=== PATIENT | female | born 1985 | race Caucasian/White ===

== ENCOUNTER 2017-05-24 20:25 | Outpatient (CLI) | payer MEDICAID ==
[2017-05-24 21:24] LABS: ADD MAN DIFF? NO
[2017-05-24 21:30] LABS: BASOPHILS % 0.2 % (0.0-2.0); EOSINOPHILS # 0.1 10^3/ul (0.0-0.5); EOSINOPHILS % 0.8 % (0.0-7.0); HEMATOCRIT 28.8 % (37.0-47.0); HEMOGLOBIN 9.9 g/dl (12.0-16.0); LYMPHOCYTES # 2.1 10^3/ul (0.8-2.9); LYMPHOCYTES % 21.9 % (15.0-51.0); MEAN CORPUSCULAR HEMOGLOBIN 29.5 pg (29.0-33.0); MEAN CORPUSCULAR HGB CONC 34.4 g/dl (32.0-37.0); MEAN CORPUSCULAR VOLUME 85.7 fl (82.0-101.0); MEAN PLATELET VOLUME 9.5 fl (7.4-10.4); MONOCYTE # 0.7 10^3/ul (0.3-0.9); NEUTROPHIL # 6.8 10^3/ul (1.6-7.5); NEUTROPHILS % 69.4 % (39.0-77.0); PLATELET COUNT 213 10^3/UL (140-415); RED BLOOD COUNT 3.36 10^6/ul (4.20-5.40); RED CELL DISTRIBUTION WIDTH 13.2 % (11.5-14.5)
[2017-05-24 21:30] LABS: WHITE BLOOD COUNT 9.7 10^3/ul (4.8-10.8)
[2017-05-24 21:31] LABS: ADD UMIC NO; UR ASCORBIC ACID NEGATIVE (NEGATIVE); UR BILIRUBIN (Dip) NEGATIVE (NEGATIVE); UR BLOOD (Dip) NEGATIVE (NEGATIVE); UR CLARITY CLEAR (CLEAR); UR COLOR STRAW (YELLOW); UR GLUCOSE (Dip) NEGATIVE (NEGATIVE); UR KETONES (Dip) NEGATIVE (NEGATIVE); UR LEUKOCYTE ESTERASE (Dip) NEGATIVE Leu/ul (NEGATIVE); UR NITRITE (Dip) NEGATIVE (NEGATIVE); UR SPECIFIC GRAVITY (Dip) 1.005 (1.003-1.030); UR TOTAL PROTEIN (Dip) NEGATIVE (NEGATIVE); UR UROBILINOGEN (Dip) NEGATIVE (NEGATIVE)
[2017-05-24 21:50] LABS: RUPTURE FETAL MEMBRANES NEGATIVE (NEGATIVE)
== END 2017-05-24 22:23 | disposition home or self-care (01) ==
LOC: OBT 20:25 → L-D 20:29 → OBT 22:23
DX: O41.93X0 Disorder of amniotic fluid and membranes, unspecified, third trimester, not applicable or unspecified (principal); Z3A.30 30 weeks gestation of pregnancy
CPT/HCPCS: 76815; 76817; 81003; 84112; 85025

== ENCOUNTER 2017-06-17 12:20 | Outpatient (CLI) | payer MEDICAID | END 2017-06-17 14:30 | disposition home or self-care (01) | LOC: OBT 12:20 → L-D 12:22 → OBT 14:30 | DX: O26.893 Other specified pregnancy related conditions, third trimester (principal); Z3A.34 34 weeks gestation of pregnancy; R07.9 Chest pain, unspecified | CPT/HCPCS: 76817; 76818 ==

== ENCOUNTER 2017-06-17 14:34 | Emergency (ER) | payer MEDICAID ==
[2017-06-17] MEDS: FAMOTIDINE 20 MG TAB PO (18:07)
== END 2017-06-17 18:53 | disposition home or self-care (01) ==
LOC: FTE 14:34
DX: O99.89 Other specified diseases and conditions complicating pregnancy, childbirth and the puerperium (principal); H60.90 Unspecified otitis externa, unspecified ear; O99.513 Diseases of the respiratory system complicating pregnancy, third trimester; J06.9 Acute upper respiratory infection, unspecified; R07.9 Chest pain, unspecified; Z3A.34 34 weeks gestation of pregnancy
CPT/HCPCS: 93005; 99284-25

== ENCOUNTER 2017-07-07 18:50 | Inpatient (IN) | payer MEDICAID ==
[2017-07-07 19:54] LABS: ADD UMIC YES; UR ASCORBIC ACID NEGATIVE (NEGATIVE); UR BACTERIA FEW /HPF (NONE SEEN); UR BILIRUBIN (Dip) NEGATIVE (NEGATIVE); UR BLOOD (Dip) 1+ mg/dL (NEGATIVE); UR CLARITY CLEAR (CLEAR); UR COLOR YELLOW (YELLOW); UR GLUCOSE (Dip) NEGATIVE (NEGATIVE); UR KETONES (Dip) 1+ mg/dL (NEGATIVE); UR LEUKOCYTE ESTERASE (Dip) NEGATIVE Leu/ul (NEGATIVE); UR MUCUS FEW /HPF (NONE SEEN); UR NITRITE (Dip) NEGATIVE (NEGATIVE); UR RBC 1 /HPF (0-5); UR SPECIFIC GRAVITY (Dip) 1.012 (1.003-1.030); UR TOTAL PROTEIN (Dip) 2+ mg/dl (NEGATIVE); UR UROBILINOGEN (Dip) NEGATIVE (NEGATIVE); UR WBC 2 /HPF (0-5)
[2017-07-07 20:21] LABS: RUPTURE FETAL MEMBRANES NEGATIVE (NEGATIVE)
[2017-07-07] MEDS ORDERED: MISOPROSTOL 200 MCG TAB PR ×2 (22:30→23:00)
[2017-07-07] MEDS ORDERED: METHYLERGONOVINE 0.2 MG INJ IM ×2 (22:30→23:00)
[2017-07-07] MEDS ORDERED: LIDOCAINE 1% (MPF) 30 ML INJ INJ (22:30)
[2017-07-07] MEDS ORDERED: CARBOPROST 250 MCG INJ IM ×2 (22:30→23:00)
[2017-07-07] MEDS ORDERED: OXYTOCIN 30 UNITS/LR 500 ML IV ×3 (22:30→23:00)
[2017-07-07] MEDS ORDERED: MAGNESIUM SULFATE 4 GM/100 ML 100 ML (22:35)
[2017-07-07] MEDS: LACTATED RINGER'S 1,000 ML IV (22:43)
[2017-07-07] MEDS: MAGNESIUM SULFATE 4 GM/100 ML 100 ML IV (22:44)
[2017-07-07 22:47] LABS: ADD MAN DIFF? NO
[2017-07-07 22:55] LABS: WHITE BLOOD COUNT 8.2 10^3/ul (4.8-10.8)
[2017-07-07 22:55] LABS: BASOPHILS % 0.4 % (0.0-2.0); EOSINOPHILS # 0.1 10^3/ul (0.0-0.5); EOSINOPHILS % 0.6 % (0.0-7.0); HEMATOCRIT 31.4 % (37.0-47.0); HEMOGLOBIN 10.8 g/dl (12.0-16.0); MEAN CORPUSCULAR HEMOGLOBIN 29.4 pg (29.0-33.0); MEAN CORPUSCULAR HGB CONC 34.4 g/dl (32.0-37.0); MEAN CORPUSCULAR VOLUME 85.6 fl (82.0-101.0); MEAN PLATELET VOLUME 10.4 fl (7.4-10.4); MONOCYTE # 0.5 10^3/ul (0.3-0.9); MONOCYTES % 6.4 % (0.0-11.0); NEUTROPHIL # 5.5 10^3/ul (1.6-7.5); NEUTROPHILS % 67.9 % (39.0-77.0); PLATELET COUNT 192 10^3/UL (140-415); RED BLOOD COUNT 3.67 10^6/ul (4.20-5.40); RED CELL DISTRIBUTION WIDTH 14.9 % (11.5-14.5)
[2017-07-07] MEDS: BETAMET NA PHOS/AC(6 MG/ML) 5ML INJ IM (22:55)
[2017-07-07 23:11] LABS: INR 0.94; PARTIAL THROMBOPLASTIN TIME 24.4 Sec (25.0-35.0); PROTIME 12.7 Sec (11.9-14.9)
[2017-07-07] MEDS: MAGNESIUM SULFATE 20 GM/500 ML 500 ML IV (23:11)
[2017-07-08 00:13] LABS: HEPATITIS B SURFACE ANTIGEN NEGATIVE (NEGATIVE)
[2017-07-08] MEDS: ACETAMINOPHEN 325 MG TAB PO ×2 (03:04→15:13)
[2017-07-08] MEDS: MAGNESIUM SULFATE 20 GM/500 ML 500 ML IV ×2 (08:11→18:20)
[2017-07-08] MEDS: LACTATED RINGER'S 1,000 ML IV ×3 (08:11→22:15)
[2017-07-08 14:19] LABS: MAGNESIUM 5.2 mg/dl (1.7-2.5)
[2017-07-08 20:07] LABS: MAGNESIUM 5.3 mg/dl (1.7-2.5)
[2017-07-08 22:40] LABS: RAPID PLASMA REAGIN NONREACTIVE (NR)
[2017-07-08] MEDS: BETAMET NA PHOS/AC(6 MG/ML) 5ML INJ IM (23:07)
[2017-07-09 01:20] LABS: MAGNESIUM 5.5 mg/dl (1.7-2.5)
[2017-07-09] MEDS: MAGNESIUM SULFATE 20 GM/500 ML 500 ML IV ×2 (04:01→16:14)
[2017-07-09] MEDS: LACTATED RINGER'S 1,000 ML IV ×3 (06:15→22:09)
[2017-07-09 07:30] LABS: MAGNESIUM 5.4 mg/dl (1.7-2.5)
[2017-07-09 12:32] LABS: MAGNESIUM 5.6 mg/dl (1.7-2.5)
[2017-07-10 02:00] LABS: MAGNESIUM 5.3 mg/dl (1.7-2.5)
[2017-07-10] MEDS: MAGNESIUM SULFATE 20 GM/500 ML 500 ML IV ×3 (02:47→20:25)
[2017-07-10] MEDS: ACETAMINOPHEN 325 MG TAB PO (02:52)
[2017-07-10 08:44] LABS: MAGNESIUM 5.4 mg/dl (1.7-2.5)
[2017-07-10 18:53] LABS: MAGNESIUM 2.7 mg/dl (1.7-2.5)
[2017-07-10] MEDS: LACTATED RINGER'S 1,000 ML IV ×2 (19:30)
[2017-07-11] MEDS: LACTATED RINGER'S 1,000 ML IV ×6 (02:30→23:04)
[2017-07-11] MEDS ORDERED: OXYTOCIN 30 UNITS/LR 500 ML BAG IV (07:00)
[2017-07-11] MEDS ORDERED: METHYLERGONOVINE 0.2 MG INJ IM ×2 (10:30→23:30)
[2017-07-11] MEDS ORDERED: CEFAZOLIN 2 GM/50 ML (PMX) 50 ML IV (10:30)
[2017-07-11] MEDS ORDERED: MISOPROSTOL 200 MCG TAB PR ×2 (10:30→23:30)
[2017-07-11] MEDS ORDERED: OXYTOCIN 30 UNITS/LR 500 ML IV ×3 (10:30→23:30)
[2017-07-11] MEDS ORDERED: CARBOPROST 250 MCG INJ IM ×2 (10:30→23:30)
[2017-07-11 11:58] LABS: ADD MAN DIFF? NO
[2017-07-11 12:36] LABS: INR 0.94; PARTIAL THROMBOPLASTIN TIME 21.8 Sec (25.0-35.0); PROTIME 12.7 Sec (11.9-14.9)
[2017-07-11 12:44] LABS: BASOPHILS % 0.3 % (0.0-2.0); EOSINOPHILS % 0.1 % (0.0-7.0); HEMATOCRIT 31.2 % (37.0-47.0); HEMOGLOBIN 10.1 g/dl (12.0-16.0); LYMPHOCYTES # 1.8 10^3/ul (0.8-2.9); LYMPHOCYTES % 23.8 % (15.0-51.0); MEAN CORPUSCULAR HEMOGLOBIN 28.6 pg (29.0-33.0); MEAN CORPUSCULAR HGB CONC 32.4 g/dl (32.0-37.0); MEAN CORPUSCULAR VOLUME 88.4 fl (82.0-101.0); MEAN PLATELET VOLUME 10.3 fl (7.4-10.4); MONOCYTE # 0.6 10^3/ul (0.3-0.9); MONOCYTES % 8.1 % (0.0-11.0); NEUTROPHIL # 5.1 10^3/ul (1.6-7.5); NEUTROPHILS % 67.2 % (39.0-77.0); PLATELET COUNT 193 10^3/UL (140-415); RED BLOOD COUNT 3.53 10^6/ul (4.20-5.40); RED CELL DISTRIBUTION WIDTH 15.8 % (11.5-14.5)
[2017-07-11 12:44] LABS: WHITE BLOOD COUNT 7.6 10^3/ul (4.8-10.8)
[2017-07-11 13:10] LABS: HEPATITIS B SURFACE ANTIGEN NEGATIVE (NEGATIVE)
[2017-07-11] MEDS ORDERED: BUPIVACAINE 0.75%/DEXT (SPINAL) 2 ML INJ (19:02)
[2017-07-11] MEDS ORDERED: morphine SULFATE/PF (10 MG/10 ML) INJ (19:02)
[2017-07-11] MEDS ORDERED: PHENYLephrine (100 MCG/ML) 5ML SYG (19:31)
[2017-07-11] MEDS ORDERED: DEXAMETHASONE 4 MG/ML 1 ML INJ (19:34)
[2017-07-11] MEDS ORDERED: ONDANSETRON 4 MG INJ (20:34)
[2017-07-11 20:39] LABS: RAPID PLASMA REAGIN NONREACTIVE (NR)
[2017-07-11] MEDS ORDERED: NALOXONE (0.4 MG/ML) INJ IV (21:00)
[2017-07-11] MEDS ORDERED: ONDANSETRON 4 MG INJ IV (21:00)
[2017-07-11] MEDS ORDERED: ZOLPIDEM 5 MG TAB PO (21:00)
[2017-07-11] MEDS ORDERED: morphine 2 MG INJ IV ×2 (21:00)
[2017-07-11] MEDS ORDERED: DIPHENHYDRAMINE 50 MG INJ IV (21:00)
[2017-07-11] MEDS: OXYTOCIN 30 UNITS/LR 500 ML IV ×2 (21:38→23:04)
[2017-07-11] MEDS: KETOROLAC 30 MG INJ IV ×2 (22:43→23:27)
[2017-07-11] MEDS ORDERED: LANOLIN 7 GM TUBE TOP (23:30)
[2017-07-12] MEDS: LACTATED RINGER'S 1,000 ML IV ×2 (01:50→09:57)
[2017-07-12] MEDS: KETOROLAC 30 MG INJ IV ×2 (08:15→14:39)
[2017-07-12] MEDS: SENNA/DOCUSATE NA (8.6MG/50MG) TAB PO ×2 (09:00→21:07)
[2017-07-12] MEDS: FERROUS SULFATE (EC) 325 MG TAB PO ×3 (09:48→17:39)
[2017-07-12 11:10] LABS: ADD MAN DIFF? NO
[2017-07-12 11:19] LABS: BASOPHILS % 0.1 % (0.0-2.0); EOSINOPHILS % 0.1 % (0.0-7.0); HEMATOCRIT 29.4 % (37.0-47.0); HEMOGLOBIN 10.1 g/dl (12.0-16.0); LYMPHOCYTES # 1.8 10^3/ul (0.8-2.9); LYMPHOCYTES % 12.9 % (15.0-51.0); MEAN CORPUSCULAR HEMOGLOBIN 29.4 pg (29.0-33.0); MEAN CORPUSCULAR HGB CONC 34.4 g/dl (32.0-37.0); MEAN CORPUSCULAR VOLUME 85.5 fl (82.0-101.0); MEAN PLATELET VOLUME 10.1 fl (7.4-10.4); MONOCYTES % 6.8 % (0.0-11.0); NEUTROPHIL # 11.1 10^3/ul (1.6-7.5); NEUTROPHILS % 79.5 % (39.0-77.0); PLATELET COUNT 161 10^3/UL (140-415); RED BLOOD COUNT 3.44 10^6/ul (4.20-5.40); RED CELL DISTRIBUTION WIDTH 14.8 % (11.5-14.5)
[2017-07-12 11:19] LABS: WHITE BLOOD COUNT 13.9 10^3/ul (4.8-10.8)
[2017-07-12] MEDS: IBUPROFEN 800 MG TAB PO (21:07)
[2017-07-13] MEDS: IBUPROFEN 800 MG TAB PO ×3 (04:31→22:34)
[2017-07-13] MEDS: SENNA/DOCUSATE NA (8.6MG/50MG) TAB PO ×2 (09:00→22:34)
[2017-07-13] MEDS: FERROUS SULFATE (EC) 325 MG TAB PO ×3 (09:02→18:05)
[2017-07-13] MEDS: OXYCODONE/ACETAMINOPHEN (5/325) TAB PO ×2 (09:03→15:49)
[2017-07-14] MEDS: IBUPROFEN 800 MG TAB PO ×2 (06:00→13:40)
[2017-07-14] MEDS: SENNA/DOCUSATE NA (8.6MG/50MG) TAB PO (08:16)
[2017-07-14] MEDS: FERROUS SULFATE (EC) 325 MG TAB PO ×2 (08:16→11:50)
[2017-07-14] MEDS: DIPHTH/TET/ACEL PERTUSS (ADULT) 0.5 ML VIAL IM* (10:48)
[2017-07-14] MEDS: OXYCODONE/ACETAMINOPHEN (5/325) TAB PO (13:06)
== END 2017-07-14 16:23 | disposition home or self-care (01) | DRG 766 ==
LOC: OBT 18:50 → L-D 07-08 00:31 → OBT 23:00 → L-D 07-11 19:24 → PP1 07-11 23:41
PROVIDERS: Obstetrics & Gynecology
PROC: 10D00Z1 Extraction of Products of Conception, Low, Open Approach (ICD-10-PCS; principal; 2017-07-11 19:30)
PROC: 0UL70ZZ Occlusion of Bilateral Fallopian Tubes, Open Approach (ICD-10-PCS; 2017-07-11 19:30)
PROC: 3E033VJ Introduction of Other Hormone into Peripheral Vein, Percutaneous Approach (ICD-10-PCS; 2017-07-11 19:30)
DX: O34.211 Maternal care for low transverse scar from previous cesarean delivery (principal); Z3A.37 37 weeks gestation of pregnancy; N73.6 Female pelvic peritoneal adhesions (postinfective); O99.89 Other specified diseases and conditions complicating pregnancy, childbirth and the puerperium; Z37.0 Single live birth; Z30.2 Encounter for sterilization
CPT/HCPCS: 36415; 76817; 76818; 81001; 83735; 84112; 85025; 85610; 85730; 86592; 86850; 86900; 86901; 87086; 87340; 88302; 90715; 94760; 96360; 96361; 96372; 99464

== ENCOUNTER 2017-10-12 14:04 | Emergency (ER) | payer MEDICAID ==
[2017-10-12] MEDS: IBUPROFEN 800 MG TAB PO (15:05)
[2017-10-12 15:36] LABS: ADD UMIC YES; UR ASCORBIC ACID NEGATIVE (NEGATIVE); UR BILIRUBIN (Dip) NEGATIVE (NEGATIVE); UR BLOOD (Dip) 2+ mg/dL (NEGATIVE); UR CLARITY SLIGHTLY CLOUDY (CLEAR); UR COLOR YELLOW (YELLOW); UR GLUCOSE (Dip) NEGATIVE (NEGATIVE); UR KETONES (Dip) NEGATIVE (NEGATIVE); UR LEUKOCYTE ESTERASE (Dip) 2+ Leu/ul (NEGATIVE); UR NITRITE (Dip) NEGATIVE (NEGATIVE); UR RBC 9 /HPF (0-5); UR SPECIFIC GRAVITY (Dip) 1.017 (1.003-1.030); UR TOTAL PROTEIN (Dip) 1+ mg/dl (NEGATIVE); UR UROBILINOGEN (Dip) NEGATIVE (NEGATIVE); UR WBC 114 /HPF (0-5)
== END 2017-10-12 16:05 | disposition home or self-care (01) ==
LOC: FTE 14:04
DX: N39.0 Urinary tract infection, site not specified (principal)
CPT/HCPCS: 81001; 87086; 99283

== ENCOUNTER 2018-07-06 21:40 | Inpatient (IN) | payer MEDICAID ==
[2018-07-07] MEDS: ONDANSETRON 4 MG INJ IV ×3 (01:55→08:22)
[2018-07-07] MEDS: morphine 4 MG/ML VIAL IV ×3 (01:55→08:22)
[2018-07-07] MEDS: SOD CHLORIDE 0.9% 1,000 ML IV ×3 (01:56→12:15)
[2018-07-07 02:04] LABS: ADD MAN DIFF? NO
[2018-07-07 02:08] LABS: BASOPHILS % 0.4 % (0.0-2.0); EOSINOPHILS # 0.1 10^3/ul (0.0-0.5); EOSINOPHILS % 0.7 % (0.0-7.0); HEMATOCRIT 37.2 % (37.0-47.0); HEMOGLOBIN 12.3 g/dl (12.0-16.0); LYMPHOCYTES % 30.4 % (15.0-51.0); MEAN CORPUSCULAR HEMOGLOBIN 28.9 pg (29.0-33.0); MEAN CORPUSCULAR HGB CONC 33.1 g/dl (32.0-37.0); MEAN CORPUSCULAR VOLUME 87.3 fl (82.0-101.0); MONOCYTE # 0.7 10^3/ul (0.3-0.9); MONOCYTES % 7.4 % (0.0-11.0); NEUTROPHIL # 6.1 10^3/ul (1.6-7.5); NEUTROPHILS % 60.8 % (39.0-77.0); PLATELET COUNT 251 10^3/UL (140-415); RED BLOOD COUNT 4.26 10^6/ul (4.20-5.40)
[2018-07-07 02:34] LABS: ADD UMIC YES; ALANINE AMINOTRANSFERASE 21 IU/L (13-69); ALBUMIN 4.1 g/dl (3.3-4.9); ALBUMIN/GLOBULIN RATIO 1.32; ALKALINE PHOSPHATASE 51 IU/L (42-121); ANION GAP 8 (5-13); ASPARTATE AMINO TRANSFERASE 16 IU/L (15-46); BILIRUBIN,INDIRECT 0.4 mg/dl (0-1.1); BILIRUBIN,TOTAL 0.4 mg/dl (0.2-1.3); BLOOD UREA NITROGEN 12 mg/dl (7-20); CALCIUM 9.9 mg/dl (8.4-10.2); CARBON DIOXIDE 29 mmol/L (21-31); CHLORIDE 106 mmol/L (97-110); CREATININE 0.56 mg/dl (0.44-1.00); Estimated GFR > 60 mL/min (>60); GLUCOSE 103 mg/dl (70-220); LIPASE 105 U/L (23-300); POTASSIUM 4.1 mmol/L (3.5-5.1); SODIUM 143 mmol/L (135-144); TOTAL PROTEIN 7.2 g/dl (6.1-8.1); UR ASCORBIC ACID NEGATIVE (NEGATIVE); UR BILIRUBIN (Dip) NEGATIVE (NEGATIVE); UR BLOOD (Dip) 1+ mg/dL (NEGATIVE); UR CLARITY SLIGHTLY CLOUDY (CLEAR); UR COLOR YELLOW (YELLOW); UR GLUCOSE (Dip) NEGATIVE (NEGATIVE); UR KETONES (Dip) NEGATIVE (NEGATIVE); UR LEUKOCYTE ESTERASE (Dip) NEGATIVE Leu/ul (NEGATIVE); UR MUCUS FEW /HPF (NONE SEEN); UR NITRITE (Dip) NEGATIVE (NEGATIVE); UR RBC 13 /HPF (0-5); UR SPECIFIC GRAVITY (Dip) 1.018 (1.003-1.030); UR SQUAMOUS EPITHELIAL CELL FEW /HPF (FEW); UR TOTAL PROTEIN (Dip) NEGATIVE (NEGATIVE); UR UROBILINOGEN (Dip) NEGATIVE (NEGATIVE); UR WBC 1 /HPF (0-5)
[2018-07-07] MEDS: SOD CHLORIDE 0.9% 100 ML (03:02)
[2018-07-07] MEDS: IOHEXOL 300MG/ML 150 ML BTL (03:02)
[2018-07-07] MEDS: PIPER-TAZO 3.375 GM IV (PMX) 100 ML IVPB ×4 (06:41→23:53)
[2018-07-07] MEDS ORDERED: LIDOCAINE 2% (SDV) 5 ML INJ (07:00)
[2018-07-07] MEDS ORDERED: ACETAMINOPHEN 325 MG TAB PO ×3 (07:30→17:00)
[2018-07-07] MEDS ORDERED: DOCUSATE SODIUM 100 MG CAP PO (08:00)
[2018-07-07] MEDS ORDERED: NACL 0.9% 3 ML SYG IV (08:00)
[2018-07-07] MEDS ORDERED: BISACODYL (EC) 5 MG TAB PO (08:00)
[2018-07-07] MEDS ORDERED: ONDANSETRON 4 MG INJ IV ×4 (08:00→17:00)
[2018-07-07] MEDS ORDERED: morphine 2 MG INJ IV (08:00)
[2018-07-07] MEDS: LACTATED RINGER'S 1,000 ML IV (08:09)
[2018-07-07] MEDS ORDERED: ROPIVACAINE 0.5 % 30 ML VIAL (15:37)
[2018-07-07] MEDS ORDERED: FENTAnyl 50 MCG/ML VIAL (15:37)
[2018-07-07] MEDS ORDERED: FENTAnyl 50 MCG/ML VIAL IV ×2 (16:00)
[2018-07-07] MEDS ORDERED: MEPERIDINE 25 MG INJ IV (16:00)
[2018-07-07] MEDS ORDERED: METOCLOPRAMIDE 10 MG INJ IV (16:00)
[2018-07-07] MEDS ORDERED: ALBUTEROL 0.083% (NEB) 2.5 MG/3 ML AMP HHN (16:00)
[2018-07-07] MEDS ORDERED: DIPHENHYDRAMINE 50 MG INJ IV ×2 (16:00→17:00)
[2018-07-07] MEDS ORDERED: HYDROmorphONE 1 MG/5 ML IV SYRINGE IV ×2 (16:00)
[2018-07-07] MEDS: BUPIVACAINE 0.5%/EPI (SDV) 30 ML INJ (16:07)
[2018-07-07] MEDS ORDERED: ROCURONIUM 50 MG INJ (16:07)
[2018-07-07] MEDS ORDERED: PROPOFOL 20 ML (16:07)
[2018-07-07] MEDS ORDERED: CEFAZOLIN 1 GM INJ (16:07)
[2018-07-07] MEDS ORDERED: GLYCOPYRROLATE 0.4 MG INJ (16:07)
[2018-07-07] MEDS ORDERED: NEOSTIGMINE 10 MG INJ (16:07)
[2018-07-07] MEDS ORDERED: SUCCINYLCHOLINE CHLORIDE 100 MG/5 ML SYG IV (16:07)
[2018-07-07] MEDS: HYDROmorphONE 1 MG/5 ML IV SYRINGE IV (16:46)
[2018-07-07] MEDS ORDERED: IBUPROFEN 600 MG TAB PO (17:00)
[2018-07-07] MEDS ORDERED: KETOROLAC 30 MG INJ IV (17:00)
[2018-07-07] MEDS ORDERED: HYDROmorphONE 0.5 MG/0.5 ML SYG IV (17:00)
[2018-07-07] MEDS: D5W-0.45 NACL + KCL 20 MEQ 1,000 ML IV (18:15)
[2018-07-08] MEDS: morphine 4 MG/ML VIAL IV
[2018-07-08] MEDS: D5W-0.45 NACL + KCL 20 MEQ 1,000 ML IV ×2 (02:35→05:26)
[2018-07-08 05:05] LABS: ADD MAN DIFF? NO
[2018-07-08 05:09] LABS: WHITE BLOOD COUNT 7.2 10^3/ul (4.8-10.8)
[2018-07-08 05:09] LABS: BASOPHILS % 0.3 % (0.0-2.0); EOSINOPHILS % 0.6 % (0.0-7.0); HEMATOCRIT 34.7 % (37.0-47.0); HEMOGLOBIN 11.4 g/dl (12.0-16.0); LYMPHOCYTES # 2.2 10^3/ul (0.8-2.9); LYMPHOCYTES % 30.3 % (15.0-51.0); MEAN CORPUSCULAR HEMOGLOBIN 28.8 pg (29.0-33.0); MEAN CORPUSCULAR HGB CONC 32.9 g/dl (32.0-37.0); MEAN CORPUSCULAR VOLUME 87.6 fl (82.0-101.0); MONOCYTE # 0.5 10^3/ul (0.3-0.9); MONOCYTES % 6.5 % (0.0-11.0); NEUTROPHIL # 4.4 10^3/ul (1.6-7.5); NEUTROPHILS % 61.6 % (39.0-77.0); PLATELET COUNT 230 10^3/UL (140-415); RED BLOOD COUNT 3.96 10^6/ul (4.20-5.40); RED CELL DISTRIBUTION WIDTH 12.1 % (11.5-14.5)
[2018-07-08] MEDS: PIPER-TAZO 3.375 GM IV (PMX) 100 ML IVPB ×3 (05:26→18:00)
[2018-07-08 05:38] LABS: ALANINE AMINOTRANSFERASE 16 IU/L (13-69); ALBUMIN 3.3 g/dl (3.3-4.9); ALBUMIN/GLOBULIN RATIO 1.13; ALKALINE PHOSPHATASE 41 IU/L (42-121); ANION GAP 5 (5-13); ASPARTATE AMINO TRANSFERASE 13 IU/L (15-46); BILIRUBIN,INDIRECT 0.3 mg/dl (0-1.1); BILIRUBIN,TOTAL 0.3 mg/dl (0.2-1.3); BLOOD UREA NITROGEN 4 mg/dl (7-20); CALCIUM 8.6 mg/dl (8.4-10.2); CARBON DIOXIDE 28 mmol/L (21-31); CHLORIDE 107 mmol/L (97-110); CHOL/HDL RATIO 3.4 RATIO; CHOLESTEROL 136 mg/dl (100-200); CREATININE 0.51 mg/dl (0.44-1.00); Estimated GFR > 60 mL/min (>60); GLUCOSE 114 mg/dl (70-220); HDL CHOLESTEROL 40 mg/dl (34-82); LDL CHOLESTEROL,CALCULATED 79 mg/dl; MAGNESIUM 1.9 mg/dl (1.7-2.5); POTASSIUM 3.7 mmol/L (3.5-5.1); SODIUM 140 mmol/L (135-144); TOTAL PROTEIN 6.2 g/dl (6.1-8.1); TRIGLYCERIDES 84 mg/dl (0-149)
[2018-07-08 06:09] LABS: HEMOGLOBIN A1C 5.4 % (0-5.9)
[2018-07-08] MEDS: HYDROCODONE/APAP (5/325) TAB PO (11:35)
== END 2018-07-08 18:30 | disposition home or self-care (01) | DRG 343 ==
LOC: FTE 21:40 → MS1 07-07 04:46
PROC: 0DTJ4ZZ Resection of Appendix, Percutaneous Endoscopic Approach (ICD-10-PCS; principal; 2018-07-07 11:30)
DX: K35.30 Acute appendicitis with localized peritonitis, without perforation or gangrene (principal); E66.9 Obesity, unspecified; Z68.30 Body mass index [BMI] 30.0-30.9, adult
CPT/HCPCS: 74177; 80053; 80061; 81001; 81025; 83036; 83690; 83735; 84443; 85025; 87086; 88304; 96361; 96374; 96375; 99285-25